=== PATIENT | female | born 1990 | race Caucasian/White ===

== ENCOUNTER 2020-12-14 15:34 | Emergency (ER) | payer OTHER, SELFPAY ==
[2020-12-14 15:51] VITALS: BP 123/86; PULSE 84; RESP 16; TEMP 36.6; O2SAT 100; BMI 26.9
--- NOTE | 2020-12-14 16:03 | ED_ITS ---
HPI - Allergic Reaction General Chief complaint: Allergic Reaction Stated complaint: Hives Time Seen by Provider: 12/14/20 15:59 Source: patient Mode of arrival: ambulatory Limitations: no limitations History of Present Illness HPI narrative: 30 y/o female presenting with worsening hives all over for the last 4 days. She reports they 1st started Thursday night on her abdominal area. The spots are raised, red and itchy. The next day they spread to her arms and legs. She went to [facility] for evaluation and was told to take Benadryl. She reports rash continued to worsen and now she has it on both of her inner thighs and it parks. The only new things she can think that could be causing it are new laundry detergent and oral Flagyl which she took her last dose of last night. She denies and facial involvement. No SOB or wheezing. She has no known medical problems. complaint: hives Onset (ago): day(s) (4) Exposure: unknown Symptoms: rash and itching Severity: moderate Treatment prior to arrival: benadryl (last took last night) Previous Allergic Reaction History: none Related Data Previous Rx's Medication Instructions Recorded famotidine [Pepcid] 40 mg PO BEDTIME #7 tab 12/14/20 prednisone 50 mg PO DAILY #7 tab 12/14/20 Allergies Allergy/AdvReac Type Severity Reaction Status Date / Time apple Allergy Unknown Verified 12/14/20 15:55 MUSHROOM Allergy Unknown hives Uncoded 12/14/20 15:55 Review of Systems Review of Systems: Constitutional: No Fever, No Chills ENT/Mouth: No sore throat, No Swallowing Difficulty Eyes: No Eye Pain, No Swelling, No Redness Cardiovascular: No Chest Pain, No SOB, No Edema Respiratory: No Cough, No Sputum, No Wheezing, No dyspnea Gastrointestinal: No Nausea, No Vomiting, No Diarrhea, No abdominal Pain Genitourinary: No Dysuria, No Urinary Frequency, No Hematuria Musculoskeletal: No joint pain, No Myalgias Skin: + Skin Lesions, + rash Neuro: No Weakness, No Numbness, No Dizziness, + Headache Psych: + Anxiety/Panic, No Depression Heme/Lymph: No Bruising, No Lymphadenopathy PMFSH Past Medical History Attestation statement: The following information was validated with the patient. Medical History No known health problems Social History Social History Advance Directives: No Advance Directives Information Provided: Yes Physical Exam Vital Signs: Vital Signs: Last Vital Signs Temp 97.8 F 12/14/20 15:51 Pulse 84 12/14/20 15:51 Resp 16 12/14/20 15:51 BP 123/86 12/14/20 15:51 Pulse Ox 100 12/14/20 15:51 Body Mass Index 26.9 Appearance: Alert. Oriented X3. No acute distress. Eyes: Pupils equal, round and reactive to light. ENT: Pharynx normal. Lips normal. Uvula midline. Neck: Normal inspection. Neck supple. CVS: Normal heart rate and rhythm. Pulses normal. Respiratory: No respiratory distress. Breath sounds normal. Abdomen: Soft and nontender. +BS x4 Skin: Skin warm and dry. Normal skin color. Normal skin turgor. Diffuse erythematous urticarial rash on all 4 extremities and anterior trunk. Proximal, medial thighs with ertythematous flat rash, non-blanching, nontender. NV intact distally. Extremities: No lower extremity edema. No calf tenderness Neuro: Oriented X 3. No motor deficit. No sensory deficit. Course Course Course Narrative: 30 y/o female presenting with worsening hives and inner thigh rash x4 days. Recently on flagyl and recently changed her detergent. No airway involvment or SOB. No purpura. Will treat for allergic reaction with benadryl, prednisone and pepcid and monitor. Reevaluation(s) Reevaluation #1: Patient remains stable. She is stable for discharge with PO prednisone and antihistamines. She will come back to the ER if symptoms worsen. Discharge Plan Discharge Clinical Impression: Urticaria Patient Disposition: Home, Self-Care Instructions: Urticaria (ED) Additional Instructions: Take the prescribed medications starting tomorrow, you were given 1st doses today in the ER. Recommend Benadryl 25-50 mg every 6 hours until the rash is resolved. Change your laundry detergent to a hypoallergenic one without scent. Avoid creams and lotions for now. Use topical Benadryl [place] as needed for itching. Follow up with your doctor next week. If you develop new or worsening symptoms call 911 or come back to the ER for further evaluation. Prescriptions: New prednisone 50 mg tablet 50 mg PO DAILY Qty: 7 RF: 0 famotidine [Pepcid] 40 mg tablet 40 mg PO BEDTIME Qty: 7 RF: 0 Stand Alone Forms: Work/School Release Discharge Date/Time: 12/14/20 17:05
[2020-12-14] MEDS: Famotidine 20 MG TABLET PO (16:27)
[2020-12-14] MEDS: predniSONE 20 MG TABLET 60 MG PO (16:27)
== END 2020-12-14 17:05 | disposition home or self-care (01) ==
PROVIDERS: Emergency Provider Emergency Medicine; PCP Internal Medicine
DX: L50.9 Urticaria, unspecified (principal)
CPT/HCPCS: 99283